=== PATIENT | female | born 1945 | race Caucasian/White ===

== ENCOUNTER 2017-02-24 12:30 | Emergency (ER) | payer OTHER ==
[~2017-02-24] VITALS: Ht 157.5 cm; Wt 54.4 kg
[2017-02-24] MEDS ORDERED: MEDROL DOSEPAK4 MG PO (13:31)
[2017-02-24] MEDS ORDERED: PEPCID20 MG PO (13:31)
[2017-02-24 14:02] VITALS: BP 162/74
== END 2017-02-24 14:03 | disposition home or self-care (01) ==
LOC: RME 12:30 → EME 12:30 → RME 14:03
DX: T78.40XA Allergy, unspecified, initial encounter (principal); E78.5 Hyperlipidemia, unspecified; F17.200 Nicotine dependence, unspecified, uncomplicated
CPT/HCPCS: 99281; 99283